=== PATIENT | female | born 1955 | race Caucasian/White ===

== ENCOUNTER 2021-02-05 13:29 | Outpatient (CLI) | payer BC | END 2021-02-05 13:30 | disposition home or self-care (01) | LOC: CSHMAMMO 13:29 | PROVIDERS: ATTEND Internal Medicine | DX: R92.8 Other abnormal and inconclusive findings on diagnostic imaging of breast (principal); R92.1 Mammographic calcification found on diagnostic imaging of breast | CPT/HCPCS: 77066; G0279 ==

== ENCOUNTER 2022-04-04 10:26 | Outpatient (CLI) | payer BC ==
[~2022-04-04 10:26] MED LIST: Magnevist 469MG/ML 20 ML VIAL ONE
== END 2022-04-04 10:27 | disposition home or self-care (01) ==
LOC: CSHMRI 10:26
PROVIDERS: ATTEND Nurse Practitioner Adult Health
DX: R41.89 Other symptoms and signs involving cognitive functions and awareness (principal); Q85.03 Schwannomatosis; G31.89 Other specified degenerative diseases of nervous system; G93.89 Other specified disorders of brain; I67.89 Other cerebrovascular disease
CPT/HCPCS: 70553; A9579

== ENCOUNTER 2023-05-01 14:26 | Outpatient (CLI) | payer BC | END 2023-05-01 14:27 | disposition home or self-care (01) | LOC: CSHMAMMO 14:26 | PROVIDERS: ATTEND Internal Medicine | DX: R92.8 Other abnormal and inconclusive findings on diagnostic imaging of breast (principal) | CPT/HCPCS: 77066; G0279 ==

== ENCOUNTER 2025-06-21 14:40 | Outpatient (CLI) | payer BC | END 2025-06-21 14:41 | disposition home or self-care (01) | LOC: CSHMAMMO 14:40 | DX: Z12.31 Encounter for screening mammogram for malignant neoplasm of breast (principal); N63.12 Unspecified lump in the right breast, upper inner quadrant | CPT/HCPCS: 77063; 77067 ==

== ENCOUNTER 2025-06-30 15:13 | Outpatient (CLI) | payer BC | END 2025-06-30 15:14 | disposition home or self-care (01) | LOC: CSHMAMMO 15:13 | DX: N63.10 Unspecified lump in the right breast, unspecified quadrant (principal) | CPT/HCPCS: G0279 ==